=== PATIENT | female | born 1995 ===

== ENCOUNTER 2020-08-12 09:06 | Day surgery (SDC) | payer OTHER ==
[2020-08-12] MEDS ORDERED: IBU600 MG PO (12:47)
== END 2020-08-12 16:35 | disposition home or self-care (01) ==
LOC: CIR.AMB 09:06
PROVIDERS: ATTEND Obstetrics & Gynecology Gynecology
DX: T83.89XA Other specified complication of genitourinary prosthetic devices, implants and grafts, initial encounter (principal); N85.01 Benign endometrial hyperplasia; Z20.828 Contact with and (suspected) exposure to other viral communicable diseases